=== PATIENT | male | born 1960 | race African-American/Black ===

== ENCOUNTER 2024-09-03 08:16 | Emergency (ER) | payer MEDICARE ==
--- OUTSIDE RECORDS SUMMARY | 2024-09-03 08:19 | XMS REPORT | Continuity of Care Document ---
Author Name Unknown Address [address] [place] [address] [facility] thconnect Address [address] [place] [address]. [address] [place] [address] Care Team Providers Care Crystal Slicer Name Role Phone Unavailable Unavailable Unavailable Payers Payer Name Policy Type Policy Number Effective Date Expirati on Date Source [employer] (MEDICARE REPLACEMENT HMO) [id number] 00:00:00 Encounters Start Date/Time End Date/Time Encounter Type Admission Type Attending [facility] Care Facility Care Department Encounter ID Source 2023-07-29 00:00:00 2023-07-29 00:00:00 Outpatient DMG DMG [id number] [facility]
--- NOTE | 2024-09-03 08:50 | ER ---
Nurse's Notes [facility] Name: Tong Meza Age: 63 yrs Sex: Male : 1960 Arrival Date: 09/03/2024 Time: 08:16 Bed 6 Private MD: Diagnosis: Essential (primary) hypertension;Alcohol use, unspecified Presentation: 09/03 08:28 Chief complaint: Patient states: got a high BP reading at home and he got worried and iw wants to get checked out, denies chest pain, dizziness or headache. 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 Coronavirus screen: At this time, the client does not indicate any symptoms associated with coronavirus-19. Ebola Screen: No symptoms or risks identified at this time. Initial Sepsis Screen: Does the patient meet any 2 criteria? No. Patient's initial sepsis screen is negative. Does the patient have a suspected source of infection? No. Patient's initial sepsis screen is negative. Risk Assessment: Do you want to hurt yourself or someone else? Patient reports no desire to harm self or others. Onset of symptoms was September 03, 2024. 08:28 Method Of Arrival: Ambulatory iw 08:28 Acuity: RADHA 3 iw Historical: - Allergies: 08:29 No Known Allergies; iw - Home Meds: 08:30 hydrochlorothiazide 25 mg Oral tablet daily [Active]; iw - PMHx: 08:30 Hypercholesterolemia; Hypertensive disorder; iw - PSHx: 08:30 None; iw - Immunization history:: Adult Immunizations not up to date. - Infectious Disease History:: Denies. - Social history:: Smoking status: Patient denies any tobacco usage or history of. Patient uses alcohol, on a daily basis. claims drinking about a 6 pack/day. Screenin:39 [facility] ED Fall Risk Assessment (Adult) History of falling in the last 3 months, aa5 including since admission No falls in past 3 months (0 pts) Confusion or Disorientation No (0 pts) Intoxicated or Sedated No (0 pts) Impaired Gait No (0 pts) Mobility Assist Device Used No (0 pt) Altered Elimination No (0 pt) Score/Fall Risk Level 0 - 2 = Low Risk Oriented to surroundings, Maintained a safe environment, Educated pt \T\ family on fall prevention, incl call for assistance when getting out of bed. Abuse screen: Denies threats or abuse. Nutritional screening: No deficits noted. Tuberculosis screening: No symptoms or risk factors identified. Assessment: 08:30 General: Appears comfortable, Behavior is cooperative, anxious, Denies feeling ill. aa5 Pain: Denies pain. Neuro: Level of Consciousness is awake, alert, obeys commands, Oriented to person, place, time, situation. Cardiovascular: Heart tones S1 S2 present Rhythm is regular. Respiratory: Airway is patent Respiratory effort is even, unlabored, Respiratory pattern is regular, symmetrical. GI: Abdomen is round non-distended, Abd is soft and non tender X 4 quads. Patient currently denies diarrhea, nausea, vomiting. : No signs and/or symptoms were reported regarding the genitourinary system. EENT: No signs and/or symptoms were reported regarding the EENT system. Derm: Skin is dry, Skin is normal, Skin temperature is warm. Musculoskeletal: Range of motion: intact in all extremities. 09:00 Reassessment: Patient is alert, oriented x 3, equal unlabored respirations, skin aa5 warm/dry/pink. Vital Signs: 08:28 BP 166 / 102; Pulse 74; Resp 16; Temp 98.1; Pulse Ox 100% on R/A; Weight 90.72 kg; iw Height 5 ft. 11 in. ; Pain 0/10; 08:43 BP 148 / 93; iw 08:28 Body Mass Index 27.89 (90.72 kg, 180.34 cm) iw 08:28 Pain Scale: Adult iw ED Course: 08:19 Patient arrived in ED. mr 08:20 Castro Givens MD is Attending Physician. [facility] 08:23 Sayda Vann, JAQUELINE is Primary Nurse. aa5 08:29 Triage completed. iw 08:30 Arm band placed on. iw 08:30 Patient has correct armband on for positive identification. Bed in low position. Call aa5 light in reach. Side rails up X 1. 09:00 No provider procedures requiring assistance completed. Patient did not have IV access aa5 during this emergency room visit. Administered Medications: No medications were administered Medication: 08:39 VIS not applicable for this client. aa5 Outcome: 08:50 Discharge ordered by . [facility] 09:00 Discharged to home ambulatory, aa5 09:00 Condition: stable 09:00 Discharge instructions given to patient, Instructed on discharge instructions, follow up and referral plans. Demonstrated understanding of instructions, follow-up care, 09:05 Patient left the ED. aa5 Signatures: Castro Givens MD MD cha Rivera, Mary, [facility] Dimas Devi Choudhary, RN RN Sayda Gutierres RN RN aa5 Corrections: (The following items were deleted from the chart) 08:29 08:28 Chief complaint: Patient states: got a high BP reading at home and he got worried iw and wants to get checked out, denies chest pain, dizziness or headache iw
--- NOTE | 2024-09-03 08:50 | EDPHYS ---
Physician Documentation [facility] Name: Tong Meza Age: 63 yrs Sex: Male : 1960 Arrival Date: 09/03/2024 Time: 08:16 Bed 6 Private MD: TERRIE Physician Castro Givens HPI: 09/03 08:45 This 63 yrs old Black Male presents to ER via Ambulatory with complaints of High Blood laine Pressure. 08:45 The patient has elevated blood pressure and discovered this at home. Onset: The laine symptoms/episode began/occurred just prior to arrival. Modifying factors: The symptoms are aggravated by activity, The symptoms are alleviated by remaining still. Associated signs and symptoms: Pertinent positives: anxious. Severity of symptoms: At its worst the blood pressure was mild, in the emergency department the blood pressure is unchanged. Historical: - Allergies: 08:29 No Known Allergies; iw - Home Meds: 08:30 hydrochlorothiazide 25 mg Oral tablet daily [Active]; iw - PMHx: 08:30 Hypercholesterolemia; Hypertensive disorder; iw - PSHx: 08:30 None; iw - Immunization history:: Adult Immunizations not up to date. - Infectious Disease History:: Denies. - Social history:: Smoking status: Patient denies any tobacco usage or history of. Patient uses alcohol, on a daily basis. claims drinking about a 6 pack/day. ROS: 08:46 Constitutional: Negative for fever, chills, and weight loss, Eyes: Negative for injury, laine pain, redness, and discharge, ENT: Negative for injury, pain, and discharge, Neck: Negative for injury, pain, and swelling, Cardiovascular: Negative for chest pain, palpitations, and edema, Respiratory: Negative for shortness of breath, cough, wheezing, and pleuritic chest pain, Abdomen/GI: Negative for abdominal pain, nausea, vomiting, diarrhea, and constipation, Back: Negative for injury and pain, : Negative for injury, bleeding, discharge, and swelling, MS/Extremity: Negative for injury and deformity, Skin: Negative for injury, rash, and discoloration, Neuro: Negative for headache, weakness, numbness, tingling, and seizure, Allergy/Immunology: Negative for hives, rash, and allergies, Endocrine: Negative for neck swelling, polydipsia, polyuria, polyphagia, and marked weight changes, Hematologic/Lymphatic: Negative for swollen nodes, abnormal bleeding, and unusual bruising, 08:46 Psych: Positive for anxiety, Exam: 08:46 Constitutional: This is a well developed, well nourished patient who is awake, alert, laine and in no acute distress. Head/Face: Normocephalic, atraumatic. Eyes: Pupils equal round and reactive to light, extra-ocular motions intact. Lids and lashes normal. Conjunctiva and sclera are non-icteric and not injected. Cornea within normal limits. Periorbital areas with no swelling, redness, or edema. ENT: Nares patent. No nasal discharge, no septal abnormalities noted. Tympanic membranes are normal and external auditory canals are clear. Oropharynx with no redness, swelling, or masses, exudates, or evidence of obstruction, uvula midline. Mucous membranes moist. Neck: Trachea midline, no thyromegaly or masses palpated, and no cervical lymphadenopathy. Supple, full range of motion without nuchal rigidity, or vertebral point tenderness. No Meningismus. Chest/axilla: Normal chest wall appearance and motion. Nontender with no deformity. No lesions are appreciated. Cardiovascular: Regular rate and rhythm with a normal S1 and S2. No gallops, murmurs, or rubs. Normal PMI, no JVD. No pulse deficits. Respiratory: Lungs have equal breath sounds bilaterally, clear to auscultation and percussion. No rales, rhonchi or wheezes noted. No increased work of breathing, no retractions or nasal flaring. Abdomen/GI: Soft, non-tender, with normal bowel sounds. No distension or tympany. No guarding or rebound. No evidence of tenderness throughout. Back: No spinal tenderness. No costovertebral tenderness. Full range of motion. Male : Normal genitalia with no discharge or lesions. Skin: Warm, dry with normal turgor. Normal color with no rashes, no lesions, and no evidence of cellulitis. MS/ Extremity: Pulses equal, no cyanosis. Neurovascular intact. Full, normal range of motion., bilateral aka Neuro: Awake and alert, GCS 15, oriented to person, place, time, and situation. Cranial nerves II-XII grossly intact. Motor strength 5/5 in all extremities. Sensory grossly intact. Cerebellar exam normal. Normal gait. Psych: Awake, alert, with orientation to person, place and time. Behavior, mood, and affect are within normal limits. Vital Signs: 08:28 BP 166 / 102; Pulse 74; Resp 16; Temp 98.1; Pulse Ox 100% on R/A; Weight 90.72 kg; iw Height 5 ft. 11 in. ; Pain 0/10; 08:43 BP 148 / 93; iw 08:28 Body Mass Index 27.89 (90.72 kg, 180.34 cm) iw 08:28 Pain Scale: Adult iw MDM: 08:20 Medical Screening Exam initiated laine 08:48 Differential diagnosis: hypertensive crisis, Malignant HTN. Data reviewed: vital signs, laine nurses notes. Consideration of Admission/Observation Escalation of care including admission/observation considered. I considered the following discharge prescriptions or medication management in the emergency department Medications were administered in the Emergency Department. See MAR. Test considered but Not performed: EKG: no ekg. Historians other than the Patient: pt well informed , wants no labs, no ekg. Care significantly affected by the following chronic conditions: Hypertension, high chlesterol. Administered Medications: No medications were administered Disposition Summary: 09/03/24 08:50 Discharge Ordered Notes: Location: Home laine Problem: new laine Symptoms: have improved laine Condition: Stable laine Diagnosis - Essential (primary) hypertension laine - Alcohol use, unspecified laine Followup: laine - With: Private Physician - When: 2 - 3 days - Reason: Recheck today's complaints, Continuance of care, Re-evaluation by your physician Discharge Instructions: - Discharge Summary Sheet laine - Hypertension, Adult laine - Hypertension, Adult, [id number] laine - Alcohol Abuse and Nutrition laine - How to Take Your Blood Pressure, [id number] laine - Aspirin and Your Heart laine - Managing Your Hypertension aline Forms: - Medication Reconciliation Form laine - Antibiotic Education laine - Prescription Opioid Use laine - Patient Portal Instructions laine - Leadership Thank You Letter laine Signatures: Castro Givens MD MD cha Williams, Irene, RN RN iw
[2024-09-03 09:11] VITALS: TEMP 98.1; O2SAT 100
[2024-09-03 09:12] VITALS: BP 148/93
== END 2024-09-03 09:05 | disposition home or self-care (01) ==
LOC: ER 08:16
DX: I10 Essential (primary) hypertension (principal); E78.5 Hyperlipidemia, unspecified; F10.90 Alcohol use, unspecified, uncomplicated; F41.9 Anxiety disorder, unspecified
CPT/HCPCS: 99282

== ENCOUNTER 2024-09-16 13:01 | Emergency (ER) | payer MEDICARE ==
--- OUTSIDE RECORDS SUMMARY | 2024-09-16 13:04 | XMS REPORT | Continuity of Care Document ---
Author Name Unknown Address [address] [place] [address] [address] thconnect Address [address] [place] [address] [address] [place] [address] Care Team Providers Care Bit Grinder Name Role Phone Unavailable Unavailable Unavailable Payers Payer Name Policy Type Policy Number Effective Date Expirati on Date Source HomeStay (MEDICARE REPLACEMENT HMO) [id number] 2023 00:00:00 Encounters Start Date/Time End Date/Time Encounter Type Admission Type Attending [facility] Care Facility Care Department Encounter ID Source 2023-07-29 00:00:00 2023-07-29 00:00:00 Outpatient DMG NONIG [id number] [facility]
[2024-09-16] MEDS ORDERED: FLUORESCEIN SODIUM 1 MG/WRAP ONE (13:26)
[2024-09-16] MEDS ORDERED: TETRACAINE HCL 0.5% 4ML OPTH ONE (13:26)
--- NOTE | 2024-09-16 13:36 | EDPHYS ---
Physician Documentation [facility] Name: Tong Meza Age: 63 yrs Sex: Male : 1960 Arrival Date: 09/16/2024 Time: 13:01 Bed Treatment Private MD: ED Physician Castro Givens HPI: 09/16 13:36 This 63 yrs old Black Male presents to ER via Ambulatory with complaints of Left Eye dr5 Pain. 13:36 The patient is experiencing blurred vision, pain, redness, tearing, to the left eye. dr5 Onset: The symptoms/episode began/occurred this morning. . 13:40 Patient is a 63-year-old male with history of hypertension, hyperlipidemia presenting dr5 with left eye pain that started this morning. Patient reports tearing, red and eye, and headache. Patient denies working outside or possible foreign body. Patient reports he did take his blood pressure medication this morning. Patient denies loss of vision, trauma to left eye, or FB. Historical: - Allergies: 13:19 No Known Allergies; iw - PMHx: 13:19 Hypercholesterolemia; Hypertensive disorder; iw - Immunization history:: Adult Immunizations unknown. - Infectious Disease History:: Denies. - Social history:: Smoking status: Patient denies any tobacco usage or history of. ROS: 13:40 Constitutional: as per hpi dr5 Exam: 13:40 Constitutional: This is a well developed, well nourished patient who is awake, alert, dr5 and in no acute distress. Head/Face: Normocephalic, atraumatic. ENT: Nares patent. No nasal discharge, no septal abnormalities noted. Tympanic membranes are normal and external auditory canals are clear. Oropharynx with no redness, swelling, or masses, exudates, or evidence of obstruction, uvula midline. Mucous membranes moist. Neck: Trachea midline, no thyromegaly or masses palpated, and no cervical lymphadenopathy. Supple, full range of motion without nuchal rigidity, or vertebral point tenderness. No Meningismus. Chest/axilla: Normal chest wall appearance and motion. Nontender with no deformity. No lesions are appreciated. Cardiovascular: Regular rate and rhythm with a normal S1 and S2. Normal PMI, no JVD. No pulse deficits. Respiratory: Lungs have equal breath sounds bilaterally, clear to auscultation. No rales, rhonchi or wheezes noted. No increased work of breathing, no retractions or nasal flaring. Back: No spinal tenderness. No costovertebral tenderness. Full range of motion. Male : Normal genitalia with no discharge or lesions. 13:40 Eyes: Periorbital structures: appear normal, Pupils: no acute changes, normal size, equal, round, and reactive to light and accomodation, Extraocular movements: intact throughout, Conjunctiva: injected, in the left eye, tearing noted, in left eye, Corneas: abrasion, that is small, approximately 1 mm(s), on the left, at 9 o'clock, Lids and lashes: appear normal, Visual zhang: are intact, no acute changes, Nystagmus: is not appreciated, Examination of the other eye reveals no obvious gross abnormality, Vital Signs: 13:17 BP 169 / 115; Pulse 83; Resp 16; Temp 98; Pulse Ox 100% ; Weight 95.25 kg; Height 5 ft. iw 11 in. ; 13:17 Body Mass Index 29.29 (95.25 kg, 180.34 cm) iw Procedures: 13:42 Eye Exam: Tetracaine and Fluorescein Strip Used. dr5 MDM: 13:12 Medical Screening Exam initiated dr5 13:42 Differential diagnosis: Corneal abrasion of left eye. Corneal ulcer of left eye. dr5 Foreign body in left eye. Data reviewed: vital signs, nurses notes. Care significantly affected by the following chronic conditions: Hypertension, Hyperlipidemia. Care significantly affected by the following Social Determinants of Health: Poor access to healthcare and/or lack of insurance, Poor access to transportation, Problems related to employment. Counseling: I had a detailed discussion with the patient and/or guardian regarding the historical points, exam findings, and any diagnostic results supporting the discharge/admit diagnosis, the presence of at least one elevated blood pressure reading (>120/80) during this emergency department visit, the need for outpatient follow up, for definitive care, an opthalmologist, a family practitioner. Medication response: Tetracaine. ED course: Eye exam completed with no foreign body noted. Patient reports blurry vision and tearing has resolved after tetracaine drops. 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 All questions answered.. 09/16 13:19 Order name: Eye Tray; Complete Time: 13:33 dr5 Administered Medications: 13:33 Drug: Tetracaine Ophthalmic Drops 0.5 % 1 drops Ophthalmic once {Note: ADMINISTERED BY db PROVIDER.} Route: Ophthalmic; Site: left eye; 13:38 Follow up: Response: No adverse reaction db 13:33 Drug: Fluorescein Ophthalmic Strip 1 strip Ophthalmic once {Note: given to provider for db administration.} Route: Ophthalmic; Site: left eye; 13:38 Follow up: Response: No adverse reaction db Disposition Summary: 09/16/24 13:35 Discharge Ordered Notes: Location: Home dr5 Condition: Stable dr5 Diagnosis - Injury of conjunctiva and corneal abrasion without foreign body, left eye dr5 Followup: dr5 - With: Emergency Department - When: As needed - Reason: Worsening of condition Followup: dr5 - With: Private Physician - When: 1 - 2 days - Reason: Recheck today's complaints, Continuance of care, Re-evaluation by your physician Discharge Instructions: - Discharge Summary Sheet dr5 - Corneal Abrasion dr5 Forms: - Medication Reconciliation Form dr5 - Antibiotic Education dr5 - Patient Portal Instructions dr5 - Leadership Thank You Letter dr5 Prescriptions: - Ocuflox 0.3 % Ophthalmic drops - instill 2 drops OPHTHALMIC route every 6 hours for 5 days; 15 milliliter; dr5 Refills: 0, Product Selection Permitted Addendum: 09/20/2024 15:32 Co-signature as Attending Physician, Castro Givens MD I agree with the assessment and c emmanuel plan of care. Signatures: Castro Givens MD MD cha Williams, Irene, RN RN iw Benton, Danielle, RN RN db Rhodes, Dustin, CASH VAN SALESPERSON-C CASH VAN SALESPERSON-Cdr5
--- NOTE | 2024-09-16 13:36 | ER ---
Nurse's Notes [facility] Name: Tong Meza Age: 63 yrs Sex: Male : 1960 Arrival Date: 09/16/2024 Time: 13:01 Bed Treatment Private MD: Diagnosis: Injury of conjunctiva and corneal abrasion without foreign body, left eye Presentation: 09/16 13:17 Chief complaint: Patient states: LEFT EYE PAIN AND BLURRY STARTED THIS AM WITH HIGH BP. iw Coronavirus screen: Client denies travel out of the [place] in the last 14 days. At this time, the client does not indicate any symptoms associated with coronavirus-19. Ebola Screen: Patient negative for fever greater than or equal to 101.5 degrees Fahrenheit, and additional compatible Ebola Virus Disease symptoms Patient denies exposure to infectious person. Patient denies travel to an Ebola-affected area in the 21 days before illness onset. No symptoms or risks identified at this time. 13:17 Method Of Arrival: Ambulatory iw 13:18 Initial Sepsis Screen: Does the patient meet any 2 criteria? No. Patient's initial iw sepsis screen is negative. Does the patient have a suspected source of infection? No. Patient's initial sepsis screen is negative. Risk Assessment: Do you want to hurt yourself or someone else? Patient reports no desire to harm self or others. 13:18 Acuity: RADHA 3 iw Triage Assessment: 13:18 General: Appears in no apparent distress. comfortable, Behavior is calm, cooperative. iw Pain: Complains of pain in left eye. Neuro: Level of Consciousness is awake, alert, obeys commands, Oriented to person, place, time, situation. Respiratory: Airway is patent Respiratory effort is even, unlabored, Respiratory pattern is regular, symmetrical. Historical: - Allergies: 13:19 No Known Allergies; iw - PMHx: 13:19 Hypercholesterolemia; Hypertensive disorder; iw - Immunization history:: Adult Immunizations unknown. - Infectious Disease History:: Denies. - Social history:: Smoking status: Patient denies any tobacco usage or history of. Screenin:34 [facility] ED Fall Risk Assessment (Adult) History of falling in the last 3 months, db including since admission No falls in past 3 months (0 pts) Confusion or Disorientation No (0 pts) Intoxicated or Sedated No (0 pts) Impaired Gait No (0 pts) Mobility Assist Device Used No (0 pt) Altered Elimination No (0 pt) Score/Fall Risk Level 0 - 2 = Low Risk Oriented to surroundings, Maintained a safe environment. Abuse screen: Denies threats or abuse. Denies injuries from another. Nutritional screening: No deficits noted. Tuberculosis screening: No symptoms or risk factors identified. Assessment: 13:34 Reassessment: Patient appears in no apparent distress at this time. Patient and/or db family updated on plan of care and expected duration. Pain level reassessed. Patient is alert, oriented x 3, equal unlabored respirations, skin warm/dry/pink. 13:37 Reassessment: Patient appears in no apparent distress at this time. Patient and/or db family updated on plan of care and expected duration. Pain level reassessed. Patient is alert, oriented x 3, equal unlabored respirations, skin warm/dry/pink. Vital Signs: 13:17 BP 169 / 115; Pulse 83; Resp 16; Temp 98; Pulse Ox 100% ; Weight 95.25 kg; Height 5 ft. iw 11 in. ; 13:17 Body Mass Index 29.29 (95.25 kg, 180.34 cm) iw ED Course: 13:05 Patient arrived in ED. sj2 13:06 Christiano Hughes FNP-C is [facility]. dr5 13:06 Castro Givens MD is Attending Physician. dr5 13:18 Triage completed. iw 13:18 Arm band placed on Patient placed in an exam room. iw 13:34 Patient has correct armband on for positive identification. Bed in low position. Call db light in reach. Side rails up X 1. 13:34 Assist provider with eye exam of left eye. using fluorescein stain, Performed by Christiano CYR. 13:37 Provided Education on: DISCHARGE. db 13:37 Patient did not have IV access during this emergency room visit. db Administered Medications: 13:33 Drug: Tetracaine Ophthalmic Drops 0.5 % 1 drops Ophthalmic once {Note: ADMINISTERED BY db PROVIDER.} Route: Ophthalmic; Site: left eye; 13:38 Follow up: Response: No adverse reaction db 13:33 Drug: Fluorescein Ophthalmic Strip 1 strip Ophthalmic once {Note: given to provider for db administration.} Route: Ophthalmic; Site: left eye; 13:38 Follow up: Response: No adverse reaction db Medication: 13:34 VIS not applicable for this client. db Outcome: 13:35 Discharge ordered by . dr5 13:37 Discharged to home ambulatory, db 13:37 Condition: stable 13:37 Discharge instructions given to patient, Instructed on discharge instructions, follow up and referral plans. Prescriptions given X 1, 13:38 Patient left the ED. db Signatures: Devi Choudhary RN RN iw Johnna Montiel RN RN db Ruthie Nolan 2 Christiano Hughes, MEDICATION TECHNICIAN-C MEDICATION TECHNICIAN-Cdr5
[2024-09-16 14:32] VITALS: BP 169/115; TEMP 98; O2SAT 100
== END 2024-09-16 13:38 | disposition home or self-care (01) ==
LOC: ER 13:01
DX: S05.02XA Injury of conjunctiva and corneal abrasion without foreign body, left eye, initial encounter (principal)
CPT/HCPCS: 99283